=== PATIENT | male | born 1965 | race Two or more races ===

== ENCOUNTER 2020-07-05 17:02 | Emergency (ER) | payer OTHER ==
[2020-07-05 17:23] VITALS: BP 119/62; PULSE 90; TEMP 98.9; BMI 28.0
--- NOTE | 2020-07-05 19:14 | PDOC ---
Documentation entered by Nivia Feliz SCRIBE, acting as scribe for Jamin Sahu MD. Jamin Sahu MD: This documentation has been prepared by the scribe, Nivia Feliz SCRIBE, under my direction and personally reviewed by me in its entirety. I confirm that the documentation accurately reflects all work, treatment, procedures, and medical decision making performed by me. History of Present Illness - General Chief Complaint: Alcohol intoxication Stated Complaint: DETOX Time Seen by Provider: 07/05/20 19:00 History Source: Patient Exam Limitations: No Limitations - History of Present Illness Initial Comments: 07/05/20 19:07 Patient is a 55 year old male with a significant past medical history of polysubstance abuse (etoh, cocaine), who presents to the ED requesting detox. Patient disclosed his last cocain use was yesterday and he had experienced chest pain so he went to [place] last night and was evaluated there and was discharged to come to [facility] for Detox. Pt states he currently feels fine but is ready for detox. last ETOH use today. Patient denies fever, chills, current cp, tomas, nausea, vomiting, abd pain, diarrhea, dysuria, or any other related symptoms Allergies: NKDA Past History - Medical History Allergies/Adverse Reactions: Allergies Allergy/AdvReac Type Severity Reaction Status Date / Time No Known Allergies Allergy Verified 07/05/20 17:20 COPD: No - Psycho-Social/Smoking History Smoking History: Never smoked - Substance Abuse Hx (Audit-C & DAST Scrn) How often the patient has a drink containing alcohol: 4 0r more times/wk Number of drinks the patient has on a typical day: 5 or 6 How often the patient has six or more drinks on one occasion: Daily or almost daily Score: In Men: 4 or > Positive; In Women: 3 or > Positive: 10 Screen Result (Pos requires Nsg. Audit-10AR): Positive In the last yr the pt used illegal drug/Rx for NonMed reason: Yes Score: Yes response is considered Positive: 1 Screen Result (Positive result requires Nsg. DAST-10): Positive Review of Systems - Review of Systems Able to Perform ROS?: Yes Comments:: 07/05/20 19:10 Constitutional - Pt denies Fever, Chills, weakness, HEENT: denies vision changes, sore throat Respiratory: Denies cough, sob, hemoptysis Cardiac: denies chest pain, palpitations, light headedness, leg swelling Abd/GI: denies abd pain, nausea, vomiting, blood per rectum, melena, diarrhea : denies dysuria, frequency, discharge Musculskelatal - denies back pain, joint swelling skin - denies bruising, erythema, rash neurological: denies headache, numbness, focal weakness, tingling, ataxia, weakness hematologic: denies anemia, easy bruising, easy bleeding *Physical Exam - Vital Signs Last Vital Signs Temp Pulse Resp BP Pulse Ox 98.9 F 90 18 119/62 100 07/05/20 17:20 07/05/20 17:20 07/05/20 17:20 07/05/20 17:20 07/05/20 17:20 - Physical Exam 07/05/20 19:10 GENERAL: The patient is awake, alert, and fully oriented, Nontoxic - in no acute distress. atremulous HEAD: Normocephalic, atraumatic. EYES: extraocular movements intact, sclera anicteric, conjunctiva clear. ENT: Normal voice, Moist mucous membranes. NECK: Normal range of motion, supple without lymphadenopathy, JVD, or masses. LUNGS: Breath sounds equal, clear to auscultation bilaterally. No wheezes, no crackles, no rales. HEART: Regular rate and rhythm, normal S1 and S2 without murmur, rub or gallop. ABDOMEN: Soft, nontender, normoactive bowel sounds. No guarding, no rebound. No masses. EXTREMITIES: Normal range of motion, no edema. No clubbing or cyanosis. No cords, erythema, or tenderness. NEUROLOGICAL: No facial asymmetry, Normal speech, normal gait. ambulatory with normal gait PSYCH: Normal mood, normal affect. SKIN: Warm, Dry, normal turgor, no rashes or lesions noted. Medical Decision Making - Medical Decision Making 07/05/20 19:12 astymptomatic normal exam Vital normal No clinical signs of withdrawal requesting detox, came to the wrong facility. will dc pt to go to [facility] for detox I discussed the physical exam findings, ancillary test results and final diagnoses with the patient. I answered all of the patient's questions. The patient was satisfied with the care received and felt comfortable with the discharge plan and treatment plan. The patient will call their primary care physician within 24 hours to arrange follow-up and will return to the Emergency Department with any new, persistent or worsening symptoms. Discharge - Discharge Information Problems reviewed: Yes Clinical Impression/Diagnosis: ETOH abuse Condition: Improved Disposition: HOME - Admission No - Follow up/Referral - Patient Discharge Instructions Patient Printed Discharge Instructions: DI for Alcohol Abuse Additional Instructions: Please proceed to [facility] for detox. Print Language: SWISS - Post Discharge Activity
== END 2020-07-05 19:30 | disposition home or self-care (01) ==
LOC: JER 17:02
DX: F10.10 Alcohol abuse, uncomplicated (principal)
CPT/HCPCS: 99282-25

== ENCOUNTER 2020-07-05 20:12 | Inpatient (IN) | payer OTHER ==
[2020-07-05 20:34] VITALS: BMI 22.1
--- NOTE | 2020-07-05 21:43 | HP ---
CIWA Score Nausea/Vomitin-Mild Nausea/No Vomiting Muscle Tremors: 1-None Visible, but Unity Anxiety: 4-Mod. Anxious/Guarded Agitation: 4-Moderately Restless Paroxysmal Sweats: 4-Forehead w/Sweat Beads Orientation: 0-Oriented Tacttile Disturbances: 2-Mild Itch/Numbness/Burn ([facility]) Auditory Disturbances: 0-None Visual Disturbances: 0-None Headache: 3-Moderate (7/10) CIWA-Ar Total Score: 19 - Admission Criteria OASAS Guidelines: Admission for Medically Managed Detox: Requires at least one of the followin. CIWA greater than 12 2. Seizures within the past 24 hours 3. Delirium tremens within the past 24 hours 4. Hallucinations within the past 24 hours 5. Acute intervention needed for co occurring medical disorder 6. Acute intervention needed for co occurring psychiatric disorder 7. Severe withdrawal that cannot be handled at a lower level of care (continued vomiting, continued diarrhea, abnormal vital signs) requiring intravenous medication and/or fluids 8. Patient presents the following: CIWA greater than 12 Admission Criteria Met: Admission criteria met Admitting History and Physical - Smoking History Smoking history: Never smoked Admission [facility] Chief Complaint: c/o alcohol withdrawal sx's Allergies/Adverse Reactions: Allergies Allergy/AdvReac Type Severity Reaction Status Date / Time No Known Allergies Allergy Verified 07/05/20 17:20 History of Present Illness: HERE FOR ALCOHOL WITHDRAWAL SX'S. THIS IS HIS FIRST ADMISSION HERE. REFERRED BY [facility] AFTER PRESENTING THERE WITH C/O WITHDRAWAL SX'S. CLIENT REPORTS DAILY USE OF ALCOHOL. LAST USE A FEW HOURS AGO DUE TO WITHDRAWAL SX'S. 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 REPORTS HX/O BLACKOUTS. DENIES HX/O SEIZURES. HE ALSO REPORTS COCAINE ABUSE. DENIES IVDU, HX/O DRUG OVERDOSE. REPORTS MOST RECENT CLEAN TIME 6 MONTHS RELAPSI NG 1 MONTH AGO 2/2 DIVORCE. THIS IS HIS FIRST INPATIENT TXMENT. LIVES ALONE, EMPLOYED- [employer], DENIES LEGALS Exam Limitations: No Limitations - Ebola screening Have you traveled outside of the country in the last 21 days: No Have you had contact with anyone from an Ebola affected area: No Have you been sick,other than usual withdrawal symptoms: No Do you have a fever: No - Review of Systems Constitutional: Chills, Loss of Appetite, Changes in sleep EENT: reports: Dental Problems (DENTURES) Respiratory: reports: No Symptoms reported Cardiac: reports: No Symptoms Reported GI: reports: No Symptoms Reported, Poor Appetite, Poor Fluid Intake : reports: No Symptoms Reported Musculoskeletal: reports: No Symptoms Reported Integumentary: reports: Sweating Neuro: reports: Headache Endocrine: reports: No Symptoms Reported Hematology: reports: No Symptoms Reported Psychiatric: reports: Orientated x3, Anxious, Depressed (DENIES SI) Other Systems: Reviewed and Negative Patient History - Patient Medical History Hx Anemia: No Hx Asthma: No Hx Chronic Obstructive Pulmonary Disease (COPD): No Hx Cancer: No Hx Cardiac Disorders: No Hx Congestive Heart Failure: No Hx Hypertension: No Hx Hypercholesterolemia: No Hx Pacemaker: No HX Cerebrovascular Accident: No Hx Seizures: No Hx Dementia: No Hx Diabetes: No Hx Gastrointestinal Disorders: No Hx Liver Disease: No Hx Genitourinary Disorders: No Hx Sexually Transmitted Disorders: No Hx Renal Disease (ESRD): No Hx Thyroid Disease: No Hx Human Immunodeficiency Virus (HIV): No Hx Hepatitis C: No Hx Depression: No Hx Suicide Attempt: No Hx Bipolar Disorder: No Hx Schizophrenia: No Other Medical History: DENIES - Patient Surgical History Past Surgical History: No - PPD History Previous Implant?: Yes Documented Results: Negative w/o proof Implanted On Prior [facility] Admission?: No PPD to be Administered?: Yes - Smoking Cessation Smoking history: Never smoked Initiated information on smoking cessation: No - Substance & Tx. History Hx Alcohol Use: Yes Hx Substance Use: Yes Substance Use Type: Alcohol, Cocaine Hx Substance Use Treatment: No - Substances abused Alcohol Other (specify): BEER Substance route: Oral Frequency: Daily Amount used: 10 CANS OF 24 OZ Age of first use: 27 Date of last use: 07/05/20 Crack Substance route: Smoking Frequency: Daily Amount used: 100 DOLLARS Age of first use: 27 Date of last use: 07/04/20 Admission Physical Exam BHS - Vital Signs Vital Signs: Vital Signs - 24 hr 07/05/20 20:32 Temperature 97.1 F L Pulse Rate 68 Respiratory 18 Rate Blood Pressure 105/70 - Physical General Appearance: Yes: Mild Distress, Anxious HEENTM: Yes: EOMI, Normocephalic, Normal Voice, IDA, Pharynx Normal Respiratory: Yes: Chest Non-Tender, Lungs Clear, Normal Breath Sounds, Decreased Breath Sounds, No Respiratory Distress, Other (INTERMITTENT DRY COUGH) Neck: Yes: No masses,lesions,Nodules, Supple, Trachea in good position Breast: Yes: Breasts Symetrical Cardiology: Yes: Regular Rhythm, Regular Rate, S1, S2 Abdominal: Yes: Normal Bowel Sounds, Non Tender, Flat, Soft Genitourinary: Yes: Within Normal Limits Back: Yes: Normal Inspection Musculoskeletal: Yes: full range of Motion, Gait Steady Extremities: Yes: Normal Capillary Refill, Normal Inspection, Normal Range of Motion, Non-Tender, Tremors Neurological: Yes: Within Normal Limits, Fully Oriented, Alert, Depressed Affect Integumentary: Yes: Warm, Clammy Lymphatic: Yes: Within Normal Limits - Diagnostic (1) Alcohol dependence with withdrawal, uncomplicated Current Visit: Yes Status: Acute (2) Cocaine dependence, uncomplicated Current Visit: Yes Status: Acute (3) Depressed affect Current Visit: Yes Status: Acute Cleared for Admission [facility] - Detox or Rehab [facility] Level of Care: Medically Managed Detox Regimen/Protocol: Ativan Claeared for Rehab Admission: No Breathalyzer - Breathalyzer Breathalyzer: 0.010 Urine Drug Screen - Test Device Lot number: [id number] Expiration date: 02/05/22 - Control Is test valid?: Yes - Results Drug screen NEGATIVE: No Urine drug screen results: COY-Cocaine Inpatient Rehab Admission - Rehab Decision to Admit Inpatient rehab admission?: No
[2020-07-05] MEDS ORDERED: MAGNESIUM CITRATE 300 ML BOTTLE PO PRN (21:52)
[2020-07-05] MEDS ORDERED: METHOCARBAMOL 500 MG TABLET PO PRN (21:52)
[2020-07-05] MEDS ORDERED: guaiFENesin 200 MG/10 ML 10 ML UNIT-DOSE CUPS PO PRN (21:52)
[2020-07-05] MEDS ORDERED: DICYCLOMINE HCL 10 MG CAPSULE PO PRN (21:52)
[2020-07-05] MEDS ORDERED: ACETAMINOPHEN 325 MG TABLET (FP) PO PRN ×2 (21:52)
[2020-07-05] MEDS ORDERED: BISMUTH SUBSALICYLATE 524 MG/30 ML UD PO PRN (21:52)
[2020-07-05] MEDS ORDERED: LORazepam 1 MG TABLET PO PRN (21:52)
[2020-07-05] MEDS ORDERED: MAG HYDROX/AL HYDROX/SIMETH 30 ML UNIT-DOSE CUP PO PRN (21:52)
[2020-07-05] MEDS ORDERED: MENTHOL/PHENOL 1 EACH UD MM PRN (21:52)
[2020-07-05] MEDS ORDERED: ONDANSETRON *ODT* 4 MG TABLET SL PRN (21:52)
[2020-07-05] MEDS ORDERED: IBUPROFEN 400 MG TABLET (FP) PO PRN (21:52)
[2020-07-05] MEDS ORDERED: MAGNESIUM HYDROX 2400MG/30ML ORAL SUSPENSION 30 ML CUP PO PRN (21:52)
[2020-07-05] MEDS ORDERED: P-EPHED 60MG/TRIPROLIDI 2.5MG TABLET PO PRN (21:52)
[2020-07-05] MEDS: MELATONIN 5 MG TABLETS PO SCH (23:03)
[2020-07-05] MEDS: THIAMINE HCL 100 MG TABLET (FP) PO SCH (23:03)
[2020-07-05] MEDS: LORazepam 2 MG TABLET PO SCH (23:03)
[2020-07-06] MEDS: LORazepam 2 MG TABLET PO SCH ×3 (06:15→17:52)
--- NOTE | 2020-07-06 10:12 | CONSULT ---
[facility] Psychiatric Consult - Data Date of interview: 07/06/20 Admission source: [facility] Identifying data: Mr Rosenberg is a 55 years old Black male, father of 5 children, unemployed receiving food stamp, homeless seeking detox for alcohol and cocaine Substance Abuse History: Reports history of alcohol and crack cocaine use. Refer to addiction counselor's summary for further information Medical History: Unremarkable. Psychiatric History: This is patient's first admission to this facility. He reports that his only psychiatric contact occured 2 months ago when he was admitted to [facility] in [place] for depression and suicidal ideations in the context of substance-induced withdrawal. He said that he stayed there for 7 days and treated with Zoloft. Told jingle writer that he failed to follow discharge instructions following discharge meaning he stopped taking medication and did not go for aftercare. Told jingle writer he was feeling sluggished while taking medication. Denies previous suicidal attempt. At present, denies experiencing depressive symptoms, S/H ideations. However, reports feeling anxious Physical/Sexual Abuse/Trauma History: Denies history of abuse as a child or DV relationship as an adult Mental Status Exam - Mental Status Exam Alert and Oriented to: Time, Place, Person Cognitive Function: Fair Patient Appearance: Well Groomed Mood: Anxious Affect: Appropriate Patient Behavior: Cooperative Speech Pattern: Clear Voice Loudness: Normal Thought Process: Intact, Goal Oriented Thought Disorder: Not Present Hallucinations: Denies Suicidal Ideation: Denies Homicidal Ideation: Denies Insight/Judgement: Poor Sleep: Well Appetite: Good Muscle strength/Tone: Normal Gait/Station: Normal Psychiatric Findings - Problem List ([place] 1, 2,3) (1) Substance-induced anxiety disorder Current Visit: Yes Status: Acute (2) Alcohol dependence with withdrawal, uncomplicated Current Visit: Yes Status: Acute (3) Cocaine dependence, uncomplicated Current Visit: Yes Status: Acute - Initial Treatment Plan Initial Treatment Plan: Continue inpatient detoxification
[2020-07-06] MEDS: PRENATAL VITAMINS W/ FOLIC ACID TABLET (FP) PO SCH (10:26)
[2020-07-06 11:11] LABS: BILIRUBIN,TOTAL 0.3 mg/dL (0.2-1); CALCIUM 8.4 mg/dL (8.5-10.1); CREATININE 0.9 mg/dL (0.55-1.3); POTASSIUM 4.2 mmol/L (3.5-5.1); TOT PROT 6.1 g/dl (6.4-8.2)
--- NOTE | 2020-07-06 11:16 | PN ---
[facility] CIWA - CIWA Score Nausea/Vomitin-No Nausea/No Vomiting Muscle Tremors: 3 Anxiety: 3 Agitation: 2 Paroxysmal Sweats: 3 Orientation: 0-Oriented Tacttile Disturbances: 1-Very Mild Itch/Numbness Auditory Disturbances: 0-None Visual Disturbances: 0-None Headache: 0-None Present CIWA-Ar Total Score: 12 BHS Progress Note (SOAP) Subjective: Complaints of anxiety, sweats, agitation, mild itching, and tremors. Objective: 07/06/20 11:15 Vital Signs 07/06/20 07/06/20 05:28 09:12 Temperature 97.3 F L 98.4 F Pulse Rate 53 L 51 L Respiratory 20 16 Rate Blood Pressure 116/64 110/68 O2 Sat by Pulse 99 99 Oximetry (%) Laboratory Last Values Sodium 142 mmol/L (136-145) 07/06/20 07:20 Potassium 4.2 mmol/L (3.5-5.1) 07/06/20 07:20 Chloride 108 mmol/L (98-107) H 07/06/20 07:20 Carbon Dioxide 31 mmol/L (21-32) 07/06/20 07:20 Anion Gap 3 MMOL/L (8-16) L 07/06/20 07:20 BUN 19.0 mg/dL (7-18) H 07/06/20 07:20 Creatinine 0.9 mg/dL (0.55-1.3) 07/06/20 07:20 Est GFR (CKD-EPI)AfAm 112.62 07/06/20 07:20 Est GFR (CKD-EPI)NonAf 97.17 07/06/20 07:20 Random Glucose 103 mg/dL (74-106) 07/06/20 07:20 Calcium 8.4 mg/dL (8.5-10.1) L 07/06/20 07:20 Total Bilirubin 0.3 mg/dL (0.2-1) 07/06/20 07:20 AST 28 U/L (15-37) 07/06/20 07:20 ALT 28 U/L (13-61) 07/06/20 07:20 Alkaline Phosphatase 88 U/L (45-117) 07/06/20 07:20 Total Protein 6.1 g/dl (6.4-8.2) L 07/06/20 07:20 Albumin 3.0 g/dl (3.4-5.0) L 07/06/20 07:20 Labs noted. Assessment: 07/06/20 11:16 Alert and oriented x 3, in no acute respiratory distress. Full ROM, ambulatory in unit without any assistance. Skin warm to touch without any lesions. Withdrawal symptoms. Plan: Continue detox protocol.
[2020-07-06 11:34] LABS: HEMOGLOBIN 11.4 GM/dL (11.7-16.9); MCH 25.9 pg (25.7-33.7); MCHC 31.7 g/dl (32.0-35.9); MEAN CELL VOLUME 81.7 fl (80-96); MEAN PLT VOLUME 10.4 fl (7.5-11.1); PLATELET COUNT 207 K/MM3 (134-434); RBC 4.41 M/mm3 (4.00-5.60); RDW 14.2 % (11.9-15.9); WHITE BLOOD COUNT 3.7 K/mm3 (4.0-10.0)
--- NOTE | 2020-07-06 12:46 | EKG ---
Test Reason : Blood Pressure : / mmHG Vent. Rate : 053 BPM Atrial Rate : 053 BPM P-R Int : 134 ms QRS Dur : 094 ms QT Int : 450 ms P-R-T Axes : 063 069 071 degrees QTc Int : 422 ms SINUS BRADYCARDIA WITH SINUS ARRHYTHMIA OTHERWISE NORMAL ECG NO PREVIOUS ECGS AVAILABLE Confirmed by Tyler Smallwood ([id number]) on 07/06/2020 12:45:52 PM Referred By: Confirmed By:Tyler Smallwood
[2020-07-06] MEDS ORDERED: LORazepam 1 MG TABLET PO SCH (23:00)
[2020-07-06] MEDS: THIAMINE HCL 100 MG TABLET (FP) PO SCH (23:10)
[2020-07-06] MEDS: MELATONIN 5 MG TABLETS PO SCH (23:10)
[2020-07-07] MEDS: LORazepam 1 MG TABLET PO SCH ×4 (05:56→22:18)
[2020-07-07] MEDS: PRENATAL VITAMINS W/ FOLIC ACID TABLET (FP) PO SCH (10:46)
--- NOTE | 2020-07-07 11:32 | PN ---
[facility] CIWA - CIWA Score Nausea/Vomitin-No Nausea/No Vomiting Muscle Tremors: 2 Anxiety: 3 Agitation: 0-Normal Activity Paroxysmal Sweats: 3 Orientation: 0-Oriented Tacttile Disturbances: 1-Very Mild Itch/Numbness Auditory Disturbances: 0-None Visual Disturbances: 0-None Headache: 1-Very Mild CIWA-Ar Total Score: 10 S Progress Note (SOAP) Subjective: c/o sweats, anxiety, shakes, muscle ache, and headache. Objective: 07/07/20 11:31 Vital Signs 07/07/20 05:35 Temperature 97.2 F L Pulse Rate 55 L Respiratory 18 Rate Blood Pressure 113/66 O2 Sat by Pulse 97 Oximetry (%) Laboratory Last Values WBC 3.7 K/mm3 (4.0-10.0) L 07/06/20 07:30 RBC 4.41 M/mm3 (4.00-5.60) 07/06/20 07:30 Hgb 11.4 GM/dL (11.7-16.9) L 07/06/20 07:30 Hct 36.0 % (35.4-49) 07/06/20 07:30 MCV 81.7 fl (80-96) 07/06/20 07:30 MCH 25.9 pg (25.7-33.7) 07/06/20 07:30 MCHC 31.7 g/dl (32.0-35.9) L 07/06/20 07:30 RDW 14.2 % (11.9-15.9) 07/06/20 07:30 Plt Count 207 K/MM3 (134-434) 07/06/20 07:30 MPV 10.4 fl (7.5-11.1) 07/06/20 07:30 Sodium 142 mmol/L (136-145) 07/06/20 07:20 Potassium 4.2 mmol/L (3.5-5.1) 07/06/20 07:20 Chloride 108 mmol/L (98-107) H 07/06/20 07:20 Carbon Dioxide 31 mmol/L (21-32) 07/06/20 07:20 Anion Gap 3 MMOL/L (8-16) L 07/06/20 07:20 BUN 19.0 mg/dL (7-18) H 07/06/20 07:20 Creatinine 0.9 mg/dL (0.55-1.3) 07/06/20 07:20 Est GFR (CKD-EPI)AfAm 112.62 07/06/20 07:20 Est GFR (CKD-EPI)NonAf 97.17 07/06/20 07:20 Random Glucose 103 mg/dL (74-106) 07/06/20 07:20 Calcium 8.4 mg/dL (8.5-10.1) L 07/06/20 07:20 Total Bilirubin 0.3 mg/dL (0.2-1) 07/06/20 07:20 AST 28 U/L (15-37) 07/06/20 07:20 ALT 28 U/L (13-61) 07/06/20 07:20 Alkaline Phosphatase 88 U/L (45-117) 07/06/20 07:20 Total Protein 6.1 g/dl (6.4-8.2) L 07/06/20 07:20 Albumin 3.0 g/dl (3.4-5.0) L 07/06/20 07:20 Syphilis Serology Reactive (NONREACTIVE) A* 07/06/20 07:20 RPR Titer Reactive 1:1 (NONREACTIVE) H 07/06/20 07:20 COVID-19 (JOSE R) Not detected (Not Detected) 07/05/20 23:50 Labs noted with RPR of 1:1, Assessment: 07/07/20 11:32 AOX3, in no acute respiratory distress. Full ROM, ambulating in the unit. Withdrawal symptoms. RPR 1:1, Pt states, he got syphilis years ago and was treated. 07/07/20 12:27 Plan: continue detox.
[2020-07-07] MEDS: MELATONIN 5 MG TABLETS PO SCH (22:18)
[2020-07-07] MEDS: THIAMINE HCL 100 MG TABLET (FP) PO SCH (22:18)
[2020-07-08] MEDS ORDERED: LORazepam 0.5 MG TABLET PO PRN
[2020-07-08] MEDS: LORazepam 0.5 MG TABLET PO SCH ×4 (06:19→22:37)
--- NOTE | 2020-07-08 09:32 | DS ---
[facility] Detox Discharge Summary Admission Date: 07/05/20 Discharge Date: 07/08/20 - History Present History: Alcohol Dependence, Cocaine Dependence - Physical Exam Results Vital Signs: Vital Signs Temperature 98 F 07/08/20 06:00 Pulse Rate 60 07/08/20 06:00 Respiratory Rate 18 07/08/20 06:00 Blood Pressure 137/95 07/08/20 06:00 O2 Sat by Pulse Oximetry (%) 96 07/08/20 06:00 Pertinent Admission Physical Exam Findings: Vital Signs Temperature 98 F 07/08/20 06:00 Pulse Rate 60 07/08/20 06:00 Respiratory Rate 18 07/08/20 06:00 Blood Pressure 137/95 07/08/20 06:00 O2 Sat by Pulse Oximetry (%) 96 07/08/20 06:00 Laboratory Tests 07/05/20 07/06/20 07/06/20 23:50 07:20 07:20 WBC RBC Hgb Hct MCV MCH MCHC RDW Plt Count MPV Sodium 142 Potassium 4.2 Chloride 108 H Carbon Dioxide 31 Anion Gap 3 L BUN 19.0 H Creatinine 0.9 Est GFR (CKD-EPI)AfAm 112.62 Est GFR (CKD-EPI)NonAf 97.17 Random Glucose 103 Calcium 8.4 L Total Bilirubin 0.3 AST 28 ALT 28 Alkaline Phosphatase 88 Total Protein 6.1 L Albumin 3.0 L Syphilis Serology Reactive A* RPR Titer COVID-19 (JOSE R) Not detected 07/06/20 07/06/20 07:20 07:30 WBC 3.7 L RBC 4.41 Hgb 11.4 L Hct 36.0 MCV 81.7 MCH 25.9 MCHC 31.7 L RDW 14.2 Plt Count 207 MPV 10.4 Sodium Potassium Chloride Carbon Dioxide Anion Gap BUN Creatinine Est GFR (CKD-EPI)AfAm Est GFR (CKD-EPI)NonAf Random Glucose Calcium Total Bilirubin AST ALT Alkaline Phosphatase Total Protein Albumin Syphilis Serology RPR Titer Reactive 1:1 H COVID-19 (JOSE R) labs noted aaox3 ambulating no acute distress - Treatment Hospital Course: Detox Protocol Followed, Detoxed Safely, Responded well, Discharged Condition Good, Rehab Referral Accepted
--- NOTE | 2020-07-08 09:36 | PN ---
S CIWA - CIWA Score Nausea/Vomitin-No Nausea/No Vomiting Muscle Tremors: 3 Anxiety: 2 Agitation: 2 Paroxysmal Sweats: 2 Orientation: 0-Oriented Tacttile Disturbances: 0-None Auditory Disturbances: 0-None Visual Disturbances: 0-None Headache: 0-None Present CIWA-Ar Total Score: 9 BHS Progress Note (SOAP) Subjective: sweats shakes interrupted sleep Objective: 07/08/20 09:36 Vital Signs Temperature 98 F 07/08/20 06:00 Pulse Rate 60 07/08/20 06:00 Respiratory Rate 18 07/08/20 06:00 Blood Pressure 137/95 07/08/20 06:00 O2 Sat by Pulse Oximetry (%) 96 07/08/20 06:00 Laboratory Tests 07/05/20 07/06/20 07/06/20 23:50 07:20 07:20 WBC RBC Hgb Hct MCV MCH MCHC RDW Plt Count MPV Sodium 142 Potassium 4.2 Chloride 108 H Carbon Dioxide 31 Anion Gap 3 L BUN 19.0 H Creatinine 0.9 Est GFR (CKD-EPI)AfAm 112.62 Est GFR (CKD-EPI)NonAf 97.17 Random Glucose 103 Calcium 8.4 L Total Bilirubin 0.3 AST 28 ALT 28 Alkaline Phosphatase 88 Total Protein 6.1 L Albumin 3.0 L Syphilis Serology Reactive A* RPR Titer COVID-19 (JOSE R) Not detected 07/06/20 07/06/20 07:20 07:30 WBC 3.7 L RBC 4.41 Hgb 11.4 L Hct 36.0 MCV 81.7 MCH 25.9 MCHC 31.7 L RDW 14.2 Plt Count 207 MPV 10.4 Sodium Potassium Chloride Carbon Dioxide Anion Gap BUN Creatinine Est GFR (CKD-EPI)AfAm Est GFR (CKD-EPI)NonAf Random Glucose Calcium Total Bilirubin AST ALT Alkaline Phosphatase Total Protein Albumin Syphilis Serology RPR Titer Reactive 1:1 H COVID-19 (JOSE R) aaox3 ambulating no acute distress Assessment: 07/08/20 09:36 withdrawals Plan: continue detox d/c in am
[2020-07-08] MEDS: PRENATAL VITAMINS W/ FOLIC ACID TABLET (FP) PO SCH (10:31)
[2020-07-08] MEDS: THIAMINE HCL 100 MG TABLET (FP) PO SCH (22:36)
[2020-07-08] MEDS: MELATONIN 5 MG TABLETS PO SCH (22:37)
[2020-07-09] MEDS ORDERED: LORazepam 0.5 MG TABLET PO ONE (05:00)
--- NOTE | 2020-07-09 09:19 | DS ---
[facility] Detox Discharge Summary Admission Date: 07/05/20 Discharge Date: 07/09/20 - History Present History: Alcohol Dependence, Cocaine Dependence - Physical Exam Results Vital Signs: Vital Signs Temperature 97.5 F L 07/09/20 07:11 Pulse Rate 54 L 07/09/20 07:11 Respiratory Rate 07/09/20 07:11 Blood Pressure 108/64 07/09/20 07:11 O2 Sat by Pulse Oximetry (%) 96 07/09/20 07:11 Pertinent Admission Physical Exam Findings: Vital Signs Temperature 97.5 F L 07/09/20 07:11 Pulse Rate 54 L 07/09/20 07:11 Respiratory Rate 07/09/20 07:11 Blood Pressure 108/64 07/09/20 07:11 O2 Sat by Pulse Oximetry (%) 96 07/09/20 07:11 Laboratory Tests 07/05/20 07/06/20 07/06/20 23:50 07:20 07:20 WBC RBC Hgb Hct MCV MCH MCHC RDW Plt Count MPV Sodium 142 Potassium 4.2 Chloride 108 H Carbon Dioxide 31 Anion Gap 3 L BUN 19.0 H Creatinine 0.9 Est GFR (CKD-EPI)AfAm 112.62 Est GFR (CKD-EPI)NonAf 97.17 Random Glucose 103 Calcium 8.4 L Total Bilirubin 0.3 AST 28 ALT 28 Alkaline Phosphatase 88 Total Protein 6.1 L Albumin 3.0 L Syphilis Serology Reactive A* RPR Titer COVID-19 (JOSE R) Not detected 07/06/20 07/06/20 07:20 07:30 WBC 3.7 L RBC 4.41 Hgb 11.4 L Hct 36.0 MCV 81.7 MCH 25.9 MCHC 31.7 L RDW 14.2 Plt Count 207 MPV 10.4 Sodium Potassium Chloride Carbon Dioxide Anion Gap BUN Creatinine Est GFR (CKD-EPI)AfAm Est GFR (CKD-EPI)NonAf Random Glucose Calcium Total Bilirubin AST ALT Alkaline Phosphatase Total Protein Albumin Syphilis Serology RPR Titer Reactive 1:1 H COVID-19 (JOSE R) aaox3 ambulating no acute distress lungs CTA - Treatment Hospital Course: Detox Protocol Followed, Detoxed Safely, Responded well, Discharged Condition Good, Rehab Referral Accepted - Diagnosis (1) Alcohol dependence with withdrawal, uncomplicated Current Visit: Yes Status: Chronic (2) Cocaine dependence, uncomplicated Current Visit: Yes Status: Chronic (3) Depressed affect Current Visit: Yes Status: Acute (4) Substance-induced anxiety disorder Current Visit: Yes Status: Acute - AMA Did Patient Leave Against Medical Advice: No
[2020-07-09] MEDS: PRENATAL VITAMINS W/ FOLIC ACID TABLET (FP) PO SCH (09:51)
[2020-07-09 13:59] VITALS: BP 103/55; PULSE 68; TEMP 98.1
[2020-07-09 16:29] LABS: URINE APPEARANCE CLEAR; URINE BILIRUBIN NEGATIVE (NEGATIVE); URINE COLOR YELLOW; URINE GLUCOSE (UA) NEGATIVE (NEGATIVE); URINE KETONE NEGATIVE (NEGATIVE); URINE LEUK ESTERASE NEGATIVE (NEGATIVE); URINE NITRITE NEGATIVE (NEGATIVE); URINE PROTEIN NEGATIVE (NEGATIVE)
== END 2020-07-09 06:10 | disposition other institution (70) | DRG 774 ==
LOC: YASAS 20:12 → Y6N 22:23
PROVIDERS: ADMIT Allergy & Immunology; ATTEND Allergy & Immunology
PROC: HZ2ZZZZ Detoxification Services for Substance Abuse Treatment (ICD-10-PCS; principal; 2020-07-05)
DX: F10.230 Alcohol dependence with withdrawal, uncomplicated (principal); F14.20 Cocaine dependence, uncomplicated; F19.280 Other psychoactive substance dependence with psychoactive substance-induced anxiety disorder; R45.89 Other symptoms and signs involving emotional state; Z56.0 Unemployment, unspecified; Z59.0 Homelessness
CPT/HCPCS: 36415; 80053; 81003; 85027; 86593; 86780; 93005; 93010; U0003

== ENCOUNTER 2020-10-02 14:50 | Inpatient (IN) | payer OTHER ==
[2020-10-02] MEDS ORDERED: guaiFENesin 200 MG/10 ML 10 ML UNIT-DOSE CUPS PO PRN (15:55)
[2020-10-02] MEDS ORDERED: P-EPHED 60MG/TRIPROLIDI 2.5MG TABLET PO PRN (15:55)
[2020-10-02] MEDS ORDERED: MAG HYDROX/AL HYDROX/SIMETH 30 ML UNIT-DOSE CUP PO PRN (15:55)
[2020-10-02] MEDS ORDERED: MENTHOL/PHENOL 1 EACH UD MM PRN (15:55)
[2020-10-02] MEDS ORDERED: MAGNESIUM CITRATE 300 ML BOTTLE PO PRN (15:55)
[2020-10-02] MEDS ORDERED: LOPERAMIDE HCL 2 MG CAPSULE PO PRN (15:55)
[2020-10-02] MEDS ORDERED: NICOTINE POLACRILEX 2 MG GUM BUC PRN (15:55)
[2020-10-02] MEDS: MELATONIN 5 MG TABLETS PO SCH (21:45)
[2020-10-02] MEDS: THIAMINE HCL 100 MG TABLET (FP) PO SCH (21:45)
[2020-10-02] MEDS: hydrOXYzine PAMOATE 25 MG CAPSULE (FP) PO PRN (21:45)
[2020-10-03] MEDS: PRENATAL VITAMINS W/ FOLIC ACID TABLET (FP) PO SCH (10:16)
[2020-10-03] MEDS: NICOTINE 7 MG/24 HOURS TOPICAL PATCH TD SCH (10:16)
[2020-10-03] MEDS: IBUPROFEN 400 MG TABLET (FP) PO PRN (10:17)
[2020-10-03] MEDS: THIAMINE HCL 100 MG TABLET (FP) PO SCH (21:32)
[2020-10-03] MEDS: MELATONIN 5 MG TABLETS PO SCH (21:32)
[2020-10-03] MEDS: hydrOXYzine PAMOATE 25 MG CAPSULE (FP) PO PRN (21:32)
[2020-10-04] MEDS: NICOTINE 7 MG/24 HOURS TOPICAL PATCH TD SCH (09:45)
[2020-10-04] MEDS: PRENATAL VITAMINS W/ FOLIC ACID TABLET (FP) PO SCH (09:45)
[2020-10-04] MEDS: THIAMINE HCL 100 MG TABLET (FP) PO SCH (21:26)
[2020-10-04] MEDS: MELATONIN 5 MG TABLETS PO SCH (21:26)
[2020-10-05] MEDS: NICOTINE 7 MG/24 HOURS TOPICAL PATCH TD SCH (09:54)
[2020-10-05] MEDS: PRENATAL VITAMINS W/ FOLIC ACID TABLET (FP) PO SCH (09:54)
[2020-10-05] MEDS: MELATONIN 5 MG TABLETS PO SCH (21:49)
[2020-10-05] MEDS: THIAMINE HCL 100 MG TABLET (FP) PO SCH (21:49)
[2020-10-05] MEDS: hydrOXYzine PAMOATE 25 MG CAPSULE (FP) PO PRN (21:49)
[2020-10-06] MEDS: PRENATAL VITAMINS W/ FOLIC ACID TABLET (FP) PO SCH (10:09)
[2020-10-06] MEDS: NICOTINE 7 MG/24 HOURS TOPICAL PATCH TD SCH (10:09)
[2020-10-06] MEDS: hydrOXYzine PAMOATE 25 MG CAPSULE (FP) PO PRN (21:30)
[2020-10-06] MEDS: THIAMINE HCL 100 MG TABLET (FP) PO SCH (21:31)
[2020-10-06] MEDS: MELATONIN 5 MG TABLETS PO SCH (21:31)
[2020-10-07] MEDS: ACETAMINOPHEN 325 MG TABLET (FP) PO PRN (10:08)
[2020-10-07] MEDS: NICOTINE 7 MG/24 HOURS TOPICAL PATCH TD SCH (10:08)
[2020-10-07] MEDS: PRENATAL VITAMINS W/ FOLIC ACID TABLET (FP) PO SCH (10:08)
[2020-10-07] MEDS: METHYL SALICYLATE/MENTHOL OINT 30 GM TUBE TP SCH ×2 (12:47→22:02)
[2020-10-07] MEDS: THIAMINE HCL 100 MG TABLET (FP) PO SCH (22:01)
[2020-10-07] MEDS: hydrOXYzine PAMOATE 25 MG CAPSULE (FP) PO PRN (22:01)
[2020-10-07] MEDS: MELATONIN 5 MG TABLETS PO SCH (22:01)
[2020-10-08] MEDS: NICOTINE 7 MG/24 HOURS TOPICAL PATCH TD SCH (10:35)
[2020-10-08] MEDS: PRENATAL VITAMINS W/ FOLIC ACID TABLET (FP) PO SCH (10:35)
[2020-10-08] MEDS: METHYL SALICYLATE/MENTHOL OINT 30 GM TUBE TP SCH ×2 (10:35→21:20)
[2020-10-08] MEDS: THIAMINE HCL 100 MG TABLET (FP) PO SCH (21:20)
[2020-10-08] MEDS: MELATONIN 5 MG TABLETS PO SCH (21:20)
[2020-10-08] MEDS: hydrOXYzine PAMOATE 25 MG CAPSULE (FP) PO PRN (21:20)
[2020-10-09] MEDS: METHYL SALICYLATE/MENTHOL OINT 30 GM TUBE TP SCH ×2 (10:10→22:04)
[2020-10-09] MEDS: PRENATAL VITAMINS W/ FOLIC ACID TABLET (FP) PO SCH (10:10)
[2020-10-09] MEDS: NICOTINE 7 MG/24 HOURS TOPICAL PATCH TD SCH (10:10)
[2020-10-09] MEDS: MELATONIN 5 MG TABLETS PO SCH (22:04)
[2020-10-09] MEDS: hydrOXYzine PAMOATE 25 MG CAPSULE (FP) PO PRN (22:04)
[2020-10-09] MEDS: THIAMINE HCL 100 MG TABLET (FP) PO SCH (22:04)
[2020-10-10] MEDS: PRENATAL VITAMINS W/ FOLIC ACID TABLET (FP) PO SCH (10:31)
[2020-10-10] MEDS: NICOTINE 7 MG/24 HOURS TOPICAL PATCH TD SCH (10:31)
[2020-10-10] MEDS: METHYL SALICYLATE/MENTHOL OINT 30 GM TUBE TP SCH ×2 (10:31→21:19)
[2020-10-10] MEDS: MAGNESIUM HYDROX 2400MG/30ML ORAL SUSPENSION 30 ML CUP PO PRN (10:32)
[2020-10-10] MEDS: THIAMINE HCL 100 MG TABLET (FP) PO SCH (21:19)
[2020-10-10] MEDS: MELATONIN 5 MG TABLETS PO SCH (21:19)
[2020-10-10] MEDS: hydrOXYzine PAMOATE 25 MG CAPSULE (FP) PO PRN (21:20)
[2020-10-11] MEDS: NICOTINE 7 MG/24 HOURS TOPICAL PATCH TD SCH (10:15)
[2020-10-11] MEDS: PRENATAL VITAMINS W/ FOLIC ACID TABLET (FP) PO SCH (10:15)
[2020-10-11] MEDS: METHYL SALICYLATE/MENTHOL OINT 30 GM TUBE TP SCH ×2 (10:15→21:34)
[2020-10-11] MEDS: MAGNESIUM HYDROX 2400MG/30ML ORAL SUSPENSION 30 ML CUP PO PRN (10:16)
[2020-10-11] MEDS: hydrOXYzine PAMOATE 25 MG CAPSULE (FP) PO PRN (21:34)
[2020-10-11] MEDS: THIAMINE HCL 100 MG TABLET (FP) PO SCH (21:34)
[2020-10-11] MEDS: MELATONIN 5 MG TABLETS PO SCH (21:34)
[2020-10-12] MEDS: METHYL SALICYLATE/MENTHOL OINT 30 GM TUBE TP SCH ×2 (10:40→21:22)
[2020-10-12] MEDS: PRENATAL VITAMINS W/ FOLIC ACID TABLET (FP) PO SCH (10:40)
[2020-10-12] MEDS: NICOTINE 7 MG/24 HOURS TOPICAL PATCH TD SCH (10:40)
[2020-10-12] MEDS: MELATONIN 5 MG TABLETS PO SCH (21:21)
[2020-10-12] MEDS: THIAMINE HCL 100 MG TABLET (FP) PO SCH (21:21)
[2020-10-12] MEDS: hydrOXYzine PAMOATE 25 MG CAPSULE (FP) PO PRN (21:21)
[2020-10-13] MEDS: NICOTINE 7 MG/24 HOURS TOPICAL PATCH TD SCH (10:26)
[2020-10-13] MEDS: METHYL SALICYLATE/MENTHOL OINT 30 GM TUBE TP SCH ×2 (10:27→21:30)
[2020-10-13] MEDS: PRENATAL VITAMINS W/ FOLIC ACID TABLET (FP) PO SCH (10:27)
[2020-10-13] MEDS: hydrOXYzine PAMOATE 25 MG CAPSULE (FP) PO PRN (21:30)
[2020-10-13] MEDS: THIAMINE HCL 100 MG TABLET (FP) PO SCH (21:30)
[2020-10-13] MEDS: MELATONIN 5 MG TABLETS PO SCH (21:30)
[2020-10-14] MEDS: NICOTINE 7 MG/24 HOURS TOPICAL PATCH TD SCH (09:40)
[2020-10-14] MEDS: METHYL SALICYLATE/MENTHOL OINT 30 GM TUBE TP SCH ×2 (09:40→21:24)
[2020-10-14] MEDS: PRENATAL VITAMINS W/ FOLIC ACID TABLET (FP) PO SCH (09:40)
[2020-10-14] MEDS: THIAMINE HCL 100 MG TABLET (FP) PO SCH (21:24)
[2020-10-14] MEDS: MELATONIN 5 MG TABLETS PO SCH (21:24)
[2020-10-15] MEDS: NICOTINE 7 MG/24 HOURS TOPICAL PATCH TD SCH (09:42)
[2020-10-15] MEDS: METHYL SALICYLATE/MENTHOL OINT 30 GM TUBE TP SCH ×2 (09:42→21:13)
[2020-10-15] MEDS: PRENATAL VITAMINS W/ FOLIC ACID TABLET (FP) PO SCH (09:43)
[2020-10-15] MEDS: THIAMINE HCL 100 MG TABLET (FP) PO SCH (21:12)
[2020-10-15] MEDS: MELATONIN 5 MG TABLETS PO SCH (21:12)
[2020-10-16] MEDS: NICOTINE 7 MG/24 HOURS TOPICAL PATCH TD SCH (09:47)
[2020-10-16] MEDS: METHYL SALICYLATE/MENTHOL OINT 30 GM TUBE TP SCH ×2 (09:47→21:16)
[2020-10-16] MEDS: PRENATAL VITAMINS W/ FOLIC ACID TABLET (FP) PO SCH (09:47)
[2020-10-16] MEDS: THIAMINE HCL 100 MG TABLET (FP) PO SCH (21:16)
[2020-10-16] MEDS: MELATONIN 5 MG TABLETS PO SCH (21:16)
[2020-10-17] MEDS: NICOTINE 7 MG/24 HOURS TOPICAL PATCH TD SCH (09:42)
[2020-10-17] MEDS: METHYL SALICYLATE/MENTHOL OINT 30 GM TUBE TP SCH ×2 (09:42→21:42)
[2020-10-17] MEDS: PRENATAL VITAMINS W/ FOLIC ACID TABLET (FP) PO SCH (09:42)
[2020-10-17] MEDS: MELATONIN 5 MG TABLETS PO SCH (21:23)
[2020-10-17] MEDS: THIAMINE HCL 100 MG TABLET (FP) PO SCH (21:42)
[2020-10-18] MEDS: NICOTINE 7 MG/24 HOURS TOPICAL PATCH TD SCH (09:56)
[2020-10-18] MEDS: PRENATAL VITAMINS W/ FOLIC ACID TABLET (FP) PO SCH (09:56)
[2020-10-18] MEDS: METHYL SALICYLATE/MENTHOL OINT 30 GM TUBE TP SCH ×2 (09:56→21:41)
[2020-10-18] MEDS: hydrOXYzine PAMOATE 25 MG CAPSULE (FP) PO PRN (21:41)
[2020-10-18] MEDS: MELATONIN 5 MG TABLETS PO SCH (21:41)
[2020-10-18] MEDS: THIAMINE HCL 100 MG TABLET (FP) PO SCH (21:41)
[2020-10-19] MEDS: METHYL SALICYLATE/MENTHOL OINT 30 GM TUBE TP SCH ×2 (10:10→22:21)
[2020-10-19] MEDS: NICOTINE 7 MG/24 HOURS TOPICAL PATCH TD SCH (10:10)
[2020-10-19] MEDS: PRENATAL VITAMINS W/ FOLIC ACID TABLET (FP) PO SCH (10:10)
[2020-10-19] MEDS: MELATONIN 5 MG TABLETS PO SCH (21:10)
[2020-10-19] MEDS: THIAMINE HCL 100 MG TABLET (FP) PO SCH (21:10)
[2020-10-20] MEDS: ACETAMINOPHEN 325 MG TABLET (FP) PO PRN (06:08)
[2020-10-20] MEDS: NICOTINE 7 MG/24 HOURS TOPICAL PATCH TD SCH (10:11)
[2020-10-20] MEDS: PRENATAL VITAMINS W/ FOLIC ACID TABLET (FP) PO SCH (10:11)
[2020-10-20] MEDS: METHYL SALICYLATE/MENTHOL OINT 30 GM TUBE TP SCH ×2 (10:11→21:45)
[2020-10-20] MEDS: THIAMINE HCL 100 MG TABLET (FP) PO SCH (21:45)
[2020-10-20] MEDS: MELATONIN 5 MG TABLETS PO SCH (21:45)
[2020-10-21] MEDS: PRENATAL VITAMINS W/ FOLIC ACID TABLET (FP) PO SCH (09:49)
[2020-10-21] MEDS: METHYL SALICYLATE/MENTHOL OINT 30 GM TUBE TP SCH ×2 (09:49→21:26)
[2020-10-21] MEDS: NICOTINE 7 MG/24 HOURS TOPICAL PATCH TD SCH (09:49)
[2020-10-21] MEDS: THIAMINE HCL 100 MG TABLET (FP) PO SCH (21:09)
[2020-10-21] MEDS: MELATONIN 5 MG TABLETS PO SCH (21:09)
[2020-10-21] MEDS: ACETAMINOPHEN 325 MG TABLET (FP) PO PRN (21:10)
[2020-10-22] MEDS: METHYL SALICYLATE/MENTHOL OINT 30 GM TUBE TP SCH ×2 (09:41→21:28)
[2020-10-22] MEDS: NICOTINE 7 MG/24 HOURS TOPICAL PATCH TD SCH (09:42)
[2020-10-22] MEDS: PRENATAL VITAMINS W/ FOLIC ACID TABLET (FP) PO SCH (09:42)
[2020-10-22] MEDS: THIAMINE HCL 100 MG TABLET (FP) PO SCH (21:28)
[2020-10-22] MEDS: MELATONIN 5 MG TABLETS PO SCH (21:28)
[2020-10-23] MEDS: PRENATAL VITAMINS W/ FOLIC ACID TABLET (FP) PO SCH (10:01)
[2020-10-23] MEDS: NICOTINE 7 MG/24 HOURS TOPICAL PATCH TD SCH (10:01)
[2020-10-23] MEDS: METHYL SALICYLATE/MENTHOL OINT 30 GM TUBE TP SCH ×2 (10:01→21:40)
[2020-10-23] MEDS: MELATONIN 5 MG TABLETS PO SCH (21:40)
[2020-10-23] MEDS: THIAMINE HCL 100 MG TABLET (FP) PO SCH (21:40)
[2020-10-24] MEDS: PRENATAL VITAMINS W/ FOLIC ACID TABLET (FP) PO SCH (10:16)
[2020-10-24] MEDS: NICOTINE 7 MG/24 HOURS TOPICAL PATCH TD SCH (10:17)
[2020-10-24] MEDS: METHYL SALICYLATE/MENTHOL OINT 30 GM TUBE TP SCH ×2 (10:17→21:19)
[2020-10-24] MEDS: MELATONIN 5 MG TABLETS PO SCH (21:19)
[2020-10-24] MEDS: THIAMINE HCL 100 MG TABLET (FP) PO SCH (21:19)
[2020-10-25] MEDS: NICOTINE 7 MG/24 HOURS TOPICAL PATCH TD SCH (10:15)
[2020-10-25] MEDS: PRENATAL VITAMINS W/ FOLIC ACID TABLET (FP) PO SCH (10:15)
[2020-10-25] MEDS: METHYL SALICYLATE/MENTHOL OINT 30 GM TUBE TP SCH ×2 (10:15→21:51)
[2020-10-25] MEDS: IBUPROFEN 400 MG TABLET (FP) PO PRN (13:57)
[2020-10-25] MEDS: THIAMINE HCL 100 MG TABLET (FP) PO SCH (21:51)
[2020-10-25] MEDS: MELATONIN 5 MG TABLETS PO SCH (21:51)
[2020-10-26] MEDS: NICOTINE 7 MG/24 HOURS TOPICAL PATCH TD SCH (10:35)
[2020-10-26] MEDS: PRENATAL VITAMINS W/ FOLIC ACID TABLET (FP) PO SCH (10:35)
[2020-10-26] MEDS: METHYL SALICYLATE/MENTHOL OINT 30 GM TUBE TP SCH ×2 (10:35→21:27)
[2020-10-26] MEDS: MELATONIN 5 MG TABLETS PO SCH (21:27)
[2020-10-26] MEDS: THIAMINE HCL 100 MG TABLET (FP) PO SCH (21:27)
[2020-10-27] MEDS: NICOTINE 7 MG/24 HOURS TOPICAL PATCH TD SCH (10:28)
[2020-10-27] MEDS: METHYL SALICYLATE/MENTHOL OINT 30 GM TUBE TP SCH ×2 (10:28→21:32)
[2020-10-27] MEDS: PRENATAL VITAMINS W/ FOLIC ACID TABLET (FP) PO SCH (10:29)
[2020-10-27] MEDS: THIAMINE HCL 100 MG TABLET (FP) PO SCH (21:31)
[2020-10-27] MEDS: MELATONIN 5 MG TABLETS PO SCH (21:31)
[2020-10-28] MEDS: NICOTINE 7 MG/24 HOURS TOPICAL PATCH TD SCH (09:53)
[2020-10-28] MEDS: METHYL SALICYLATE/MENTHOL OINT 30 GM TUBE TP SCH ×2 (09:53→21:14)
[2020-10-28] MEDS: PRENATAL VITAMINS W/ FOLIC ACID TABLET (FP) PO SCH (09:53)
[2020-10-28] MEDS: MELATONIN 5 MG TABLETS PO SCH (21:13)
[2020-10-28] MEDS: THIAMINE HCL 100 MG TABLET (FP) PO SCH (21:13)
[2020-10-29] MEDS: METHYL SALICYLATE/MENTHOL OINT 30 GM TUBE TP SCH ×2 (09:52→21:26)
[2020-10-29] MEDS: PRENATAL VITAMINS W/ FOLIC ACID TABLET (FP) PO SCH (09:52)
[2020-10-29] MEDS: NICOTINE 7 MG/24 HOURS TOPICAL PATCH TD SCH (09:52)
[2020-10-29] MEDS: MELATONIN 5 MG TABLETS PO SCH (21:26)
[2020-10-29] MEDS: THIAMINE HCL 100 MG TABLET (FP) PO SCH (21:26)
[2020-10-30 07:05] VITALS: BP 103/60; PULSE 74; TEMP 97.7
== END 2020-10-30 08:50 | disposition home or self-care (01) | DRG 772 ==
LOC: YASAS 14:50 → Y5N 14:51
PROVIDERS: ADMIT Allergy & Immunology; ATTEND Allergy & Immunology
PROC: HZ42ZZZ Group Counseling for Substance Abuse Treatment, Cognitive-Behavioral (ICD-10-PCS; principal; 2020-10-02)
DX: F10.20 Alcohol dependence, uncomplicated (principal); F14.20 Cocaine dependence, uncomplicated; F12.21 Cannabis dependence, in remission; M17.11 Unilateral primary osteoarthritis, right knee; Z86.19 Personal history of other infectious and parasitic diseases
CPT/HCPCS: C9803; U0003